=== PATIENT | female | born 1955 | race Hispanic/Latino ===

== ENCOUNTER 2025-08-31 15:42 | Emergency (ER) | payer OTHER, MEDICARE ==
[~2025-08-31] VITALS: Ht 157.5 cm; Wt 76.3 kg
[2025-08-31 16:22] LABS: IMMATURE GRANULOCYTE ABSOLUTE 0.03 K/uL (0-1); NUCLEATED RED BLOOD CELLS 0.0 % (0.0-0.19); PLATELET COUNT (AUTO) 292 K/uL (130-400); RED BLOOD CELL COUNT(AUTO) 4.70 MIL/uL (4.00-5.50); RED CELL DISTRIBUTION WIDTH 13.8 % (11.0-15.5); WHITE BLOOD COUNT (AUTO) 8.4 K/uL (4.8-10.8)
[2025-08-31 16:28] LABS: CREATININE 0.8 mg/dL (0.5-1.0); GLOMERULAR FILTR. RATE CALC 79.0 mL/min (>90); GLUCOSE,RANDOM 348.0 mg/dL (70-105); SODIUM SERUM 134.0 mmol/L (136-145); UREA NITROGEN, BLOOD 16.0 mg/dL (7-18)
[2025-08-31 16:35] LABS: SARS-CoV-2, RNA, NAAT NEGATIVE SARS CoV-2 (NEGATIVE)
[2025-08-31 16:41] LABS: INFLUENZA TYPE A Negative For Type A (NEGATIVE); INFLUENZA TYPE B Negative For Type B (NEGATIVE)
[2025-08-31 16:46] LABS: APPEARANCE,URINE CLOUDY (CLEAR); GLUCOSE, URINE (UA) >=1000 mg/dL (NEGATIVE); LEUKOCYTE ESTERASE ,URINE 500 Leu/uL (NEGATIVE); NITRATE,URINE 2+ (NEGATIVE); OCCULT BLOOD,URINE SMALL (NEGATIVE)
[2025-08-31 16:47] LABS: ADD UA MICROSCOPIC YES
[2025-08-31 16:48] LABS: SQUAMOUS EPITHELIAL CELL,UR FEW /HPF (0-2)
--- NOTE | 2025-08-31 17:14 | HMCIMG ---
EXAM: CR Chest, 1 View. CLINICAL HISTORY: cough COMPARISON: None provided. FINDINGS: LUNGS: The lungs show no infiltrate or other acute finding. PLEURAL SPACES: No pleural effusion or pneumothorax. MEDIASTINUM: Cardiac size and mediastinal contours within normal limits. BONES: No acute osseous abnormality. IMPRESSION: No acute cardiopulmonary pathology is evident. /[place]
[2025-08-31] MEDS: ZOSYN 3.375GM +NS 50ML IV ONE (17:33)
--- NOTE | 2025-08-31 17:50 | ERN ---
ED Note History of Present Illness Stated Complaint: MULTIPLE COMPLAINTS Chief Complaint: Multiple Complaints Time Seen by MD: 15:48 Time Seen by Midlevel: 15:52 Dictation: 70-year-old female with a history of diabetes coming in with complaints of gene ralized body weakness, cough, dysuria Allergies: Coded Allergies: No Known Drug Allergies (Unverified Allergy, Unknown, 08/31/25) Past Medical History Past Medical History: Arthritis, Diabetes-Type II, High Cholesterol Surgical History: None Review of System Dictation Constitutional: Generalized body weakness and cough Eyes: Negative for injury, pain,redness, and discharge ENT: Negative for injury,pain or swelling Cardiovascular: Negative for chest pain, palpitations, and edema Respiratory: Negative for shortness of breath, cough, and wheezing, Abdomen/GI: Negative for abdominal pain, nausea, vomiting, diarrhea, and constipation Back: Negative for injury and pain : Negative for injury, bleeding and discharge, complaining of dysuria MS/Extremity: Negative for injury and deformity Skin: Negative for rash, and discoloration Neuro: Negative for headache, weakness, numbness, tingling, and seizure Psych: Negative for suicide ideation, homicidal ideation, and hallucinations Review of Systems: was completed Initial Vital Sign VS Vital Signs Date Time Temp Pulse Resp B/P (MAP) Pulse Ox O2 Delivery O2 Flow Rate FiO2 08/31/25 15:44 98.2 96 18 121/66 98 Room Air 0 08/31/25 16:28 21 Physical Exam Dictation General: awake, alert, NAD Head/Face: Normocephalic, atraumatic Eyes: PERRL, EOMI, vision at baseline ENT: oral cavity clear, TMs clear, no signs of infection Neck: Trachea midline, supple, no nuchal rigidity Cardiovascular: RRR, normal S1/S2, No MRGs, no JVD Respiratory: CTAB, no respiratory distress, No rales or wheezes Abdomen: Soft, non-tender, non-distended, normal bowel sounds, no guarding or rebound. Skin: Warm, dry, normal turgor, no rash MS/Extremity: Pulses equal, no cyanosis, neurovascular intact, FROM Neuro: COAx4, GCS 15, strength 5/5, CN 2-12 intact, normal cerebellar exam, normal gait, Psych: Normal behavior, mood, and affect normal Results (Laboratory/Radiology) Laboratory/Radiology Laboratory Tests Test 08/31/25 16:13 08/31/25 16:15 08/31/25 16:25 08/31/25 19:14 Influenza Type A Antigen Negative For Type A Influenza Type B Antigen Negative For Type B SARS-CoV-2, RNA, NAAT NEGATIVE SARS CoV-2 White Blood Count 8.4 K/uL (4.8-10.8) Red Blood Count 4.70 MIL/uL (4.00-5.50) Hemoglobin 11.9 g/dL (12.0-16.0) L Hematocrit 37.3 % (36-48) Mean Corpuscular Volume 79.4 fL (79-99) Mean Corpuscular Hemoglobin 25.3 pg (27.0-33.0) L Mean Corpuscular Hemoglobin Concent 31.9 g/dL (32.0-36.0) L Red Cell Distribution Width 13.8 % (11.0-15.5) Platelet Count 292 K/uL (130-400) Mean Platelet Volume 9.9 fL (7.5-10.5) Immature Granulocyte % (Auto) 0.4 % (0-1) Neutrophils (%) (Auto) 61.4 % (40.0-77.0) Lymphocytes (%) (Auto) 27.4 % (21.0-51.0) Monocytes (%) (Auto) 6.3 % (3.0-13.0) Eosinophils (%) (Auto) 4.0 % (0.0-8.0) Basophils (%) (Auto) 0.5 % (0.0-5.0) Neutrophils # (Auto) 5.2 K/uL (1.8-7.7) Lymphocytes # (Auto) 2.3 K/uL (1.0-4.8) Monocytes # (Auto) 0.5 K/uL (0.1-1.0) Eosinophils # (Auto) 0.34 K/uL (0.00-0.70) Basophils # (Auto) 0.04 K/uL (0.00-0.20) Absolute Immature Granulocyte (auto 0.03 K/uL (0-1) Nucleated Red Blood Cells 0.0 % (0.0-0.19) Sodium Level 134 mmol/L (136-145) L Potassium Level 4.0 mmol/L (3.5-5.1) Chloride Level 101 mmol/L (101-111) Carbon Dioxide Level 26 mmol/L (21-32) Blood Urea Nitrogen 16 mg/dL (7-18) Creatinine 0.8 mg/dL (0.5-1.0) Glomerular Filtration Rate Calc 79 mL/min (>90) Random Glucose 348 mg/dL (70-105) H Total Calcium 8.3 mg/dL (8.5-10.1) L Troponin I High Sensitivity 5 ng/L (4-50) Urine Color YELLOW (YELLOW) Urine Appearance CLOUDY (CLEAR) H Urine pH 7.0 (5.0-8.0) Urine Specific [place] 1.032 (1.001-1.031) Urine Protein 30 mg/dL (NEGATIVE) H Urine Glucose (UA) >=1000 mg/dL (NEGATIVE) H Urine Ketones NEGATIVE mg/dL (NEGATIVE) Urine Occult Blood SMALL (NEGATIVE) H Urine Nitrate 2+ (NEGATIVE) H Urine Bilirubin NEGATIVE mg/dL (NEGATIVE) Urine Urobilinogen 0.2 mg/dL (0.2-1.0) Urine Leukocyte Esterase 500 Lito/uL (NEGATIVE) H Urine RBC 11-25 /HPF (0-1) H Urine WBC TNTC /HPF (0-1) H Urine Squamous Epithelial Cells FEW /HPF (0-2) Urine Bacteria MOD /HPF (None Seen) Whole Blood Glucose 203 MG/DL (70-110) H Labs Reviewed?: Yes EKG Comment: EKGs done at 3:47 p.m., sinus rhythm rate of 92. No STEMI interpreted by ER MD. [place] 153 QT 372 X-RAY Comment: [place] [id number] [place] [address] IMAGING REPORT Signed PATIENT: JANET BECK MR#: [id number] : 1955 SEX: F AGE: 70 LOCATION: [facility] ORDER 160 STATUS: REG ER REPORT#: [id number] SERVICE 07 REASON: cough ORDERING PHYSICIAN: SOILA WALLER CNP PROCEDURE: CXR1VW - CHEST 1VW EXAM: CR Chest, 1 View. CLINICAL HISTORY: cough COMPARISON: None provided. FINDINGS: LUNGS: The lungs show no infiltrate or other acute finding. PLEURAL SPACES: No pleural effusion or pneumothorax. MEDIASTINUM: Cardiac size and mediastinal contours within normal limits. BONES: No acute osseous abnormality. IMPRESSION: No acute cardiopulmonary pathology is evident. /[place] DICTATED BY: LUISITO OROZCO Jr., MD DATE: 08/31/251812 ELECTRONICALLY SIGNED BY: LUISITO OROZCO Jr., MD DATE: 08/31/251812 ED Course ED Course Orders Procedure Category Date Status Time Cbc With Differential LAB 08/31/25 Complete 16:08 Basic Metabolic Panel LAB 08/31/25 Complete 16:08 Chest 1vw RAD 08/31/25 Resulted 16:08 Troponin I High LAB 08/31/25 Complete Sensitivity 16:08 12 Lead Ekg Tracing- EKG 08/31/25 Logged Technical 16:08 Covid Rna Naat LAB 08/31/25 Complete 16:08 Influenza Type A & B, LAB 08/31/25 Complete Rapid 16:08 Urinalysis Profile LAB 08/31/25 Complete 16:08 Culture Urine DIPESH 08/31/25 In Process 16:47 Zosyn 3.375gm+Ns 50ml PHA 08/31/25 Complete (Zosyn 3.375gm+Ns 16:48 Ceftriaxone 1g Vial PHA 08/31/25 Complete (Rocephine 1g Inj) 18:00 0.9%Nacl 1000ml (Ns PHA 08/31/25 Complete 1000ml) 17:42 Insulin Regular, PHA 08/31/25 Complete Human 3ml (Humulin R 18:00 Bedside Glucose CPOE 08/31/25 Transmitted Fingerstick 19:09 Current Medications Medications (Trade) Dose Ordered Sig/Kyung Route PRN Reason Start Time Stop Time Status Last Admin Dose Admin Ceftriaxone Sodium (ROCEphine 1G INJ) 1 gm ONCE ONCE IVPB 08/31/25 18:00 08/31/25 18:01 DC 08/31/25 17:52 Insulin Human Regular (humuLIN R 100 UNIT/ML 3ML) 7 unit ONCE ONCE SQ 08/31/25 18:00 08/31/25 18:01 DC 08/31/25 17:54 Piperacillin Sod/ Tazobactam Sod (Zosyn 3.375gm+NS 50ml) 3.375 gm ONCE ONCE IV 08/31/25 16:48 08/31/25 17:42 DC Sodium Chloride 1,000 ml @ 1,000 mls/hr Q1H STAT IV 08/31/25 17:42 08/31/25 18:41 DC 08/31/25 17:52 Vital Signs Date Time Temp Pulse Resp B/P (MAP) Pulse Ox O2 Delivery O2 Flow Rate FiO2 08/31/25 18:28 98.4 88 18 120/80 98 Room Air* 0 21 08/31/25 16:28 98.4 89 18 120/63 99 Room Air* 0 21 08/31/25 15:44 98.2 96 18 121/66 98 Room Air 0 Medical Decision Making MDM MDM: 70-year-old female with a history of diabetes coming in with complaints of generalized body weakness, cough, dysuria.CBC shows no leukocytosis, no anemia, no thrombocytopenia. Chemistry shows hyponatremia at 1:34 a.m., normal kidney function, blood sugar is 348. Fluids and insulin given in the ER. Urine shows evidence of urinary tract infection with leuko esterase 500 in WBC count too numerous to count. Swabs are negative for flu and COVID. Rocephin given in the emergency room. Repeat sugar is 208. Discussed with the patient she take [id number] symptomatic control she might be suffering from a URI and a urinary tract infection. We will give patient antibiotics to take at home. Educated patient on a strict return precautions. Patient verbalized understanding, answered all questions. Differential diagnosis: Viral syndrome, COVID, flu, urinary tract infection Rationale: Tests considered and ordered secondary to shared decision making include: Previous outside records reviewed: Old ER visits. Risk of complication and/or morbidity or mortality of patient management: None Medications-Per medication reconciliation Need for hospitalization: Patient does not meet criteria for hospitalization. Need for emergency major/minor surgery: No There are no social concerns with this patient. Prescription drug management Prescriptions will include symptomatic care Patient's prior external medical records from other ER visits were reviewed by me as indicated. Prior testing and results from previous visits were reviewed. Prior tests were taken into account with medical decision making and resource utilization, independent historian/historians were used to obtain complete medical history. I independently interpreted the test that were performed, results were reviewed by me and considered findings on radiology if ordered. Medical management and examination interpretation discussions were had by me with other qualified healthcare professionals as indicated for the patient's care. DX & DISP Disposition: Discharge Departure Impression: Primary Impression: Viral syndrome Additional Impression: UTI (urinary tract infection) Condition: Stable Scripts Sulfamethoxazole/Trimethoprim (Bactrim Ds Tablet) 800 Mg-160 Mg Tablet 1 TAB PO BID for 5 Days, #14 TAB 0 Refills Prov: SOILA WALLER CNP 08/31/25 Referrals: WENDI RIVERA M.D. (PCP) Time of Disposition: 19:19 I have reviewed the case, and I agree with, Diagnosis and Plan SOILA WALLER CNP Aug 31, 2025 17:50
[2025-08-31] MEDS: 0.9%NACL 1000ML 1,000 ML IV STA (17:52)
[2025-08-31 18:28] VITALS: BP 120/80; PULSE 88; RESP 18; TEMP 98.4; O2SAT 98
[2025-08-31] MEDS ORDERED: SULF1TAB42 PO (19:20)
--- NOTE | 2025-08-31 19:27 | NUR ---
PT AAOX4, STABLE NO DISTRESS, VITALS WNL NO C/O PAIN NOW. PT GIVEN RX FOR PHARMACY WILL START TODAY, IV REMOVED CATHETER INTACT. PT DRIVEN HOME BY DAUGHTER.
--- NOTE | 2025-09-01 05:42 | EKG ---
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
== END 2025-08-31 19:28 | disposition home or self-care (01) ==
LOC: EDH 15:42
DX: B34.9 Viral infection, unspecified (principal); N39.0 Urinary tract infection, site not specified; E11.9 Type 2 diabetes mellitus without complications; E78.00 Pure hypercholesterolemia, unspecified; M19.90 Unspecified osteoarthritis, unspecified site; Z20.822 Contact with and (suspected) exposure to COVID-19
CPT/HCPCS: 99285; 71045; 96365; 87635; 84484; 80048; 85025; 87086 ×2; 87186; 87804 ×2; 82948; 81001; 36415; 93005; J0696; 99284; J2543

== ENCOUNTER → 2025-09-02 | Outpatient (CLI) | payer OTHER, MEDICARE ==
[~2025-09-02] MED LIST: SULF1TAB42 PO
--- NOTE | 2025-09-03 01:23 | HMCIMG ---
EXAM: XR Chest, 2 View(s). CLINICAL HISTORY: Dyspnea COMPARISON: CXR dated 08-31-2025 FINDINGS: LUNGS: Prominence of bronchovascular markings - likely senile change. No consolidation. PLEURAL SPACES: No pleural effusion or pneumothorax. HEART: The heart size is normal. BONES: Osteophytes seen in thoracic spine. IMPRESSION: * No acute cardiopulmonary pathology. * Stable CXR as compared to xray dated 08-31-2025 /[place]
== END | disposition home or self-care (01) ==
LOC: RAH 13:48
PROVIDERS: ATTEND Internal Medicine Cardiovascular Disease
DX: R06.00 Dyspnea, unspecified (principal); M25.78 Osteophyte, vertebrae
CPT/HCPCS: 71046

== ENCOUNTER → 2025-09-19 | Outpatient (CLI) | payer OTHER, MEDICARE ==
[2025-09-19] MEDS: REGADENOSON 0.4 MG/5 ML PF SYG IVP ONE (10:51)
--- NOTE | 2025-09-19 12:55 | HMCSR ---
APPROVED REPORT Height: 5 ft 2in Weight: 164 lbs TEST INDICATIONS Chest Pain The imaging protocol used to acquire images was Rest Tc-99m/stress Tc-99m 1 day Consent: The procedure was explained and understood by the patient. Informerd consent was witnessed by Jessica Mccormick RN First, low dose rest was performed then high dose stress. RESTING DATA: The resting ekg shows: NSR Rest SPECT myocardial perfusion imaging was performed in supine position minutes following the intravenous injection of 11 mCi of Tc-99 Sestamibi. Time of rest injection: 0915 Date: 09/19/2025 Time of rest imagin Date: 09/19/2025 PHARMACOLOGIC STRESS: Pharmacologic stress test was performed by injecting regadenoson 0.4 mg IV push followed by the intravenous injection of 29 mCi of Tc-99 Sestamibi. Time of stress injection: 1041 Date: 09/19/2025 Time of stress imagin Date: 09/19/2025 Heart Rate at time of stress injection: 79 bpm. The images were gated to evaluate regional wall motion and calculate left ventricular ejection fraction. STRESS DETAILS Reason for Termination: Infusion complete Stress Symptoms: Dyspnea Max HR Achieved: 95 bpm % of APMHR Achieved: 74 Max Blood Pressure: 129/62 mmHg Stress ECG: NSR Study quality was good. Lung uptake was Normal. Artifact: No artifact LEFT VENTRICLE Size: The left ventricular size is normal. Systolic Function:The left ventricular systolic function is normal. Wall Motion: No regional wall motion abnormalities noted. The left ventricular ejection fraction was calculated to be 80%.TID = 0.83. LV PERFUSION The rest and stress images show normal perfusion. IMPRESSION Normal pharmacologic nuclear stress test. Global LV Function: Normal Stress ECG Summary: Normal LV Perfusion Summary: Normal Conclusion Normal pharmacologic nuclear stress test. Global LV Function: Normal Stress ECG Summary: Normal LV Perfusion Summary: Normal
== END | disposition home or self-care (01) ==
LOC: RAH 08:52
PROVIDERS: ATTEND Internal Medicine Cardiovascular Disease
DX: R07.9 Chest pain, unspecified (principal)
CPT/HCPCS: 78452; 93017; J2785; A9500 ×2